=== PATIENT | male | born 1960 | race Caucasian/White ===

== ENCOUNTER 2019-08-24 13:20 | Inpatient (IN) | payer OTHER, SELFPAY ==
[2019-08-23 20:00] VITALS: BP 132/58
[~2019-08-24] VITALS: Ht 167.6 cm; Wt 81.6 kg
--- NOTE | 2019-08-24 13:39 | NUR ---
Patient transferred to bed 9 via wheelchair by triage nurse. RN evaluating patient at bedside.
[2019-08-24 13:50] VITALS: BP 82/55
--- NOTE | 2019-08-24 13:50 | NUR ---
59 Y/O MALE FROM HOME C/O SOB STARTING TODAY. TACHYPNIC AND DEEP RESPIRATION, PT USING ACCESSORY MUSCLES, WITH TRIPODDING. UNABLE TO SPEAK IN FULL SENTENCES WITHOUT DIFFICULTY. PTS SKIN COOL AND DIAPHORETIC. PT PLACED ON SIMPLE MASK. FULL FOWLERS POSITION. PLACED ON IRRIGATION DISTRICT MANAGER, PULSE OX, AND BP CUFF PLACED. POSITIONED FOR COMFORT. MEDHX: HTN
--- NOTE | 2019-08-24 13:51 | NUR ---
18G IV PLACED TO RT AC, BLOOD AND CULTURES DRAWN AT THIS TIME
[2019-08-24] MEDS ORDERED: ACET-8386 PO (13:56)
--- NOTE | 2019-08-24 13:56 | NUR ---
DR DOMINGUEZ AT BEDSIDE EXAMINING PT
--- NOTE | 2019-08-24 14:07 | NUR ---
XRAY AT BEDSIDE
--- NOTE | 2019-08-24 14:24 | NUR ---
RESPIRATORY AT BEDSIDE
[2019-08-24 14:28] LABS: BASOPHILS # (AUTO) 0.1 K/uL (0.00-0.22); BASOPHILS % (AUTO) 1.2 % (0.0-2.0); EOSINOPHILS # (AUTO) 0.1 K/uL (0-0.4); EOSINOPHILS % (AUTO) 1.7 % (0.0-4.0); HEMATOCRIT 53.9 % (36-52); HEMOGLOBIN 17.9 g/dL (12.0-18.0); LYMPHOCYTES # (AUTO) 0.3 K/uL (2.0-11.5); LYMPHOCYTES % (AUTO) 5.9 % (20.5-51.1); MEAN CORPUSCULAR HEMOGLOBIN 31 pg (27-31); MEAN CORPUSCULAR HGB CONC 33 g/dL (33-37); MEAN CORPUSCULAR VOLUME 93.3 fL (80-94); MONOCYTES # (AUTO) 0.1 K/uL (0.8-1.0); MONOCYTES % (AUTO) 1.4 % (1.7-9.3); NEUTROPHILS # (AUTO) 4.2 K/uL (1.8-7.7); NEUTROPHILS % (AUTO) 89.8 % (42.2-75.2); PLATELET COUNT (AUTO) 149 K/uL (140-450); RED BLOOD CELL COUNT(AUTO) 5.78 MIL/uL (4.20-6.10); RED CELL DISTRIBUTION WIDTH 15.2 % (11.6-13.7); WHITE BLOOD COUNT (AUTO) 4.7 K/uL (4.8-10.8)
--- NOTE | 2019-08-24 14:41 | NUR ---
PT STATES HE IS UNABLE TO GIVE URINE AT THIS TIME. DR DOMINGUEZ MADE AWARE. WILL FOLLOW UP WITH PT
--- NOTE | 2019-08-24 14:47 | NUR ---
SPOKE TO PTS JANINA. CALL FOR UPDATES
--- NOTE | 2019-08-24 14:52 | NUR ---
INFLUENZA, RSV, AND COVID-19 SWAB COLLECTED AT THIS TIME
[2019-08-24 14:56] LABS: ALBUMIN 2.9 g/dL (3.4-5.0); ANION GAP 25.9 (8-16); CARBON DIOXIDE 19.4 mmol/L (21-32); POTASSIUM 3.3 mmol/L (3.5-5.1); TOTAL BILIRUBIN 1.5 mg/dL (0.0-1.0)
[2019-08-24 14:58] LABS: PROTHROMBIN TIME 12.3 secs (10.8-13.4)
[2019-08-24 14:59] LABS: CREATININE 5.1 mg/dL (0.6-1.3)
--- NOTE | 2019-08-24 14:59 | NUR ---
CRITICAL LAB VALUE-- BUN 41, CREATININE 5.1
[2019-08-24] MEDS ORDERED: NACL 0.9% 1,000 ML IV ONE ×2 (15:05→17:45)
[2019-08-24] MEDS ORDERED: VANCOMYCIN 1,000 MG in DEXTROSE 5% 250 ML IV ONE (15:05)
[2019-08-24] MEDS ORDERED: PIPERACILLIN/TAZOBACTAM 4.5 GM in DEXTROSE 5% 100 ML IV ONE (15:05)
[2019-08-24] MEDS ORDERED: PIPERACILLIN/TAZOBACTAM 4.5 GM VIAL IV ONE (15:07)
[2019-08-24] MEDS ORDERED: VANCOMYCIN 1,000 MG VIAL ONE (15:08)
[2019-08-24 15:09] LABS: CKMB RELATIVE INDEX 0.1 (0.0-2.5); CREATINE KINASE MB 0.7 ng/mL (0-3.6)
--- NOTE | 2019-08-24 15:24 | NUR ---
SPOKE TO PTS , CALL FOR UPDATES ON PTDarci LEWIS--
[2019-08-24 15:35] LABS: RSV NEGATIVE (NEGATIVE)
[2019-08-24] MEDS ORDERED: HEPARIN PER PHARMACY MC PRN (15:40)
--- NOTE | 2019-08-24 15:43 | NUR ---
PT TO CT VIA GURNEY. RR EVEN AND UNLABORED. VSS.
[2019-08-24 15:44] LABS: C-REACTIVE PROTEIN QUANT 95.3 mg/dL (0.0-0.9)
--- NOTE | 2019-08-24 15:55 | NUR ---
PT RETURNED FROM CT VIA [facility]
[2019-08-24] MEDS ORDERED: ONDANSETRON 4 MG/2 ML VIAL IVP ONE (16:20)
[2019-08-24] MEDS ORDERED: MORPHINE SULFATE 4 MG/ML SYR IVP ONE ×2 (16:20→17:50)
--- NOTE | 2019-08-24 16:48 | NUR ---
PT PLACED ON 5L NC AT THIS TIME PER DR DOMINGUEZ. O2 SAT 97%. RR EVEN AND TACHYPNIC.
--- NOTE | 2019-08-24 17:07 | NUR ---
PT PLACED ON BEDSIDE COMMODE. ABLE TO GET ON COMMODE WITH NO DIFFICULTY. WILL CONTINUE TO MONITOR
--- NOTE | 2019-08-24 17:30 | NUR ---
ABG DRAWN ROUGHLY 1420 AND RESULTS WERE PRESENTED TO DR DOMINGUEZ IN THE ED PT WAS ON NRB
--- NOTE | 2019-08-24 17:53 | NUR ---
PT RESTING IN BED AWAKE AND ALERT. STATES INCREASE IN LOWER ABD PAIN. RR EVEN AND TACHYPNIC. VSS. WILL CONTINUE TO MONITOR. DR DOMINGUEZ MADE AWARE OF PAIN
--- NOTE | 2019-08-24 18:03 | NUR ---
RESPIRATORY AT BEDSIDE FOR RESPIRATORY INTERVENTION
--- NOTE | 2019-08-24 18:20 | NUR ---
PT WAS ON NC UPON MY ARRIVAL AND WAS PLACED ON 8L OXY SAT 98% HR 120 PT HANDS ARE COLD AND WERE WARMED AND I WAS ABLE TO OBTAIN SPO2 98% HIS HAND WAS PLACED INSIDE A WARM GOWN IN ATTEMPTS OF WARMING HANDS RN WAS INFORMED
--- NOTE | 2019-08-24 18:56 | NUR ---
GUSMAN CATHETER PLACED, NO URINE COLLECTED FROM CATHETER. PT TOLERATED WELL
[2019-08-24] MEDS ORDERED: ACETAMINOPHEN 325 MG TAB PO PRN (19:00)
[2019-08-24] MEDS ORDERED: ONDANSETRON 4 MG/2 ML VIAL IVP PRN (19:00)
[2019-08-24] MEDS ORDERED: POTASSIUM CHLORIDE 10 MEQ TABER PO PRN (19:00)
[2019-08-24] MEDS ORDERED: MAG SULF 2000 MG/WATER PREMIX 50 ML IV PRN (19:00)
[2019-08-24] MEDS ORDERED: MAGNESIUM OXIDE 400 MG TAB PO PRN (19:00)
[2019-08-24] MEDS ORDERED: SODIUM PHOSPHATE 118 ML ENEM RC PRN (19:00)
[2019-08-24] MEDS ORDERED: ZOLPIDEM 5 MG TAB PO PRN (19:00)
[2019-08-24] MEDS ORDERED: diphenhydrAMINE 50 MG/ML VIAL IVP PRN (19:00)
[2019-08-24] MEDS ORDERED: MORPHINE SULFATE 2 MG/ML SYR IVP PRN (19:00)
[2019-08-24] MEDS ORDERED: BISACODYL 10 MG SUPP RC PRN (19:00)
[2019-08-24 19:08] LABS: ANION GAP 25.1 (8-16); CARBON DIOXIDE 16.3 mmol/L (21-32)
[2019-08-24] MEDS ORDERED: VANCOMYCIN PER PHARMACY MC PRN (19:10)
--- NOTE | 2019-08-24 19:10 | NUR ---
RECIEVED REPORT FROM LOIS BONILLA. TRANSFER OF CARE AT THIS TIME.
[2019-08-24] MEDS ORDERED: SODIUM BICARBONATE 8.4% 100 MEQ in NACL 0.45% 1,000 ML IV SCH (19:15)
[2019-08-24 19:44] LABS: CREATININE 5.4 mg/dL (0.6-1.3); POTASSIUM 2.4 mmol/L (3.5-5.1)
--- NOTE | 2019-08-24 19:45 | NUR ---
RECEIVED PT FROM ER LUNG SOUNDS DIMINISHED, PT TACHYCARDIA, PT COMPLAINS OF ABDOMINAL PAIN ASSESSED AREA AND PT IS GUARDING IT, IT IS FIRM TO TOUCH TOLD PT I WOULD GET HIM SOME PAIN MEDS SOON POSSIBLE, ABLE TO FOLLOW COMMANDS, PT IS ON 10L OXYMIZER, HAS GUSMAN CATHETER IN PLACE WITH NO URINARY OUTPUT AT THIS TIME, PULSES PALPABLE UPPER AND LOWER EXTREMITIES S1 AND S2 HEART SOUNDS HEARD, BOWEL SOUNDS HYPOACTIVE, PT STATES HE HASN'T HAD A BM IN 12 HRS AND HAS NOT VOIDED IN AT LEAST 24 HRS, SAFETY PROTOCOLS IN PLACE WILL CONIINE TO MONITOR PT Addendum: 08/24/19 at 2346 by Santiago Farnsworth RN RIGHT FOREARM 18G IV, FLUSHED PATENT, SKIN IS INTACT BLANCHABLE RED MOTTLED COLOR, LEFT ARM EDEMA AND SWOLLEN DENIES PAIN TO AREA
--- NOTE | 2019-08-24 19:45 | NUR ---
Patient will be admitted to [facility]. Admited to ICU. Will go to room 3. Belongings list completed. Report to LOIS MENDIOLA.
[2019-08-24] MEDS ORDERED: SODIUM BICARBONATE 8.4% PFS 50 MEQ/50 ML SYR IVP ONE (20:02)
--- NOTE | 2019-08-24 20:30 | NUR ---
SPOKE WITH DR. AGUIRRE FOR PATIENT UPDATE AND TO REPORT CRITICAL LABS. NEW ORDERS RECEIVED, POTASSIUM 40 MEQ IV, ONCE, FOR K+ 2.4, AND ORDER URINE DRUG SCREEN, AND ABG. WILL CARRY OUT.
--- NOTE | 2019-08-24 20:34 | NUR ---
TALKED TO DR. AGUIRRE. DOCTOR AGREED TO START PATIENT ON BiPAP TO DECREASE WOB AND IMPROVE OXYGENATION.
[2019-08-24] MEDS ORDERED: KCL 20 MEQ/WATER INJ PREMIX 200 ML IV SCH (20:45)
--- NOTE | 2019-08-24 21:01 | NUR ---
PLACED PATIENT ON BiPAP TO DECREASE WOB. PATIENT TOLERATING WELL AT THIS TIME. WILL CONTINUE TO MONITOR PATIENT.
[2019-08-24] MEDS ORDERED: KCL 20 MEQ/WATER INJ PREMIX 100 ML IV ONE (21:06)
[2019-08-24 22:00] VITALS: BP 105/55
--- NOTE | 2019-08-24 22:00 | NUR ---
SPOKE WITH PT ABOUT PT HX LEARNED PT IS SMOKER, HAS HX OF HTN, NKA, HASNT RECEIVED THE FLU OF PNA VACCINE FOR THIS YEAR, HAS TENDONITIS IN THE LEFT SHOULDER. ASKED TO BE NOTIFIED OF ANY CHANGE
--- NOTE | 2019-08-24 22:59 | NUR ---
RN AT BEDSIDE. PATIENT BECAME UNRESPONSIVE. [facility] RESPONSE TEAM CALLED. STARTED BAGGING AND COMPRESSIONS. PULSE FOUND. AT BEDSIDE, DR. WONG (ER DOCTOR) SUCCESSFULLY INTUBATED PATIENT WITH ETT SIZE 7.5 @ 23cm TEETH LEVEL AND SECURED WITH ANCHOR-FAST. AUSCULTATION REVEALS BILATERAL BREATH SOUNDS. CODE BLUE CALLED FOR NO PULSE. STATED COMPRESSION AND BAGGING.
--- NOTE | 2019-08-24 23:00 | NUR ---
PT WAS IN PROCESS OF RECEIVING ANOTHER IV ON THE LEFT ARM, PT BEGAN COMPLAINING OF TROUBLE BREATHING RN AND RT AT BEDSIDE PT BECAME UNRESPONSIVE TO VERBAL AND PAINFUL STIMULI, [facility]APID RESPONSE CALLED PULSE WAS CHECKED AT 1015 NO PULSE FOUND BEGAN COMPRESSIONS ON PT, ER AT BEDSIDE 2220 WITH RAPID RESPONSE TEAM EPINEPHRINE, CALCIUM GLUCONATE, SODIUM BICARB GIVEN, PULSE FOUND AND PT INTUBATED AT 2228, 23 CM AT TEETH, PULSE LOST AT 2245 RESTARTED CPR EPINEPHRINE AND SODIUM BICARB GIVEN, NO PULSES PALPATED PEA ON MONITOR, TIME OF CALLED AT 2254.
[2019-08-24] MEDS ORDERED: PIPERACILLIN/TAZOBACTAM 3.375 GM in DEXTROSE 5% 50 ML IV SCH (23:30)
--- NOTE | 2019-08-24 23:42 | NUR ---
SPOKE WITH SENTHIL JUÁREZ WHO SAID THEY ARE NOT GOING TO PURSUE ORGAN DONATION, REFERRAL #[id number]
--- NOTE | 2019-08-25 | NUR ---
CALLED [employer]ONOR OFFICE [employer] SAID OK TO RELEASE BODY CASE NUMBER NOW PROVIDED AT MORTUARY AND NO LONGER GIVEN TO HOSPITAL ACCORDING TO BERNARD. HOUSE SUP AWARE SAYS OK TO REMOVE TUBES AND GIVE POSSESSIONS TO FAMILY.
--- NOTE | 2019-08-25 02:10 | NUR ---
FACETIME/VIDEO CALL WITH FAMILY TO ALLOW FAMILY MEMBERS TO PAY RESPECTS. ALL BELONGINGS RELEASED TO -[facility]. PT's REQUESTING BOTH UPPER AND LOWER DENTURES. WILL FOLLOWUP, ONLY UPPER DENTURES WERE RELEASED. ANSWERED ALL FAMILIES QUESTIONS. WILL BE NOTIFIED WHEN MORTUARY PICKS UP BODY.
--- NOTE | 2019-08-25 03:07 | NUR ---
CALLED [facility]ONT[facility] PER FAMILY WISHES SOMEONE HAS BEEN SENT FOR THE BODY
--- NOTE | 2019-08-25 04:40 | NUR ---
DOUBLE CHECKED PATIENTS MOUTH. NO SIGNS OF LOWER DENTURES NOTED. INVENTORY LIST SHOWS ONLY UPPER DENTURES. WILL DOUBLE CHECK PATIENTS ROOM .
--- NOTE | 2019-08-25 04:47 | NUR ---
PATIENT PICKED UP BY FANI GOME[facility], ALL PAPERWORK REVIEWED AND SIGNED. ID TAG ON TOE AND BODY BAG. PATIENTS FAMILY NOTIFIED.
--- NOTE | 2019-08-25 20:30 | NUR ---
CALLED ALEJAN[facility]O [phone], INFORMED FAMILY RESULTS OF NEGATIVE COVID TEST. REFFERED FAMILY TO MEDICAL RECORDS FOR OFFICIAL COPY OF PT CHART.
== END 2019-08-24 22:54 | disposition expired | DRG 871 ==
LOC: EEVIPCON 13:20 → MED 13:20 → MIC 18:21
PROVIDERS: ADMIT Internal Medicine Pulmonary Disease; ATTEND Internal Medicine Pulmonary Disease
DX: A41.9 Sepsis, unspecified organism (principal); J96.01 Acute respiratory failure with hypoxia; N17.0 Acute kidney failure with tubular necrosis; M72.6 Necrotizing fasciitis; L03.313 Cellulitis of chest wall; I10 Essential (primary) hypertension; M75.90 Shoulder lesion, unspecified, unspecified shoulder; M77.9 Enthesopathy, unspecified; Z20.828 Contact with and (suspected) exposure to other viral communicable diseases
CPT/HCPCS: 36415; 71045; 71250; 76536; 76641; 80048; 80053; 82550; 82553; 82728; 83605; 83615; 83880; 84484; 85025; 85379; 85384; 85610; 85730; 86140; 87040; 87186; 87420; 87804; 93005; 96365; 96366; 96367; 96375; 96376; 99291; J2270; J2405; J2543; J3370; J3480; J3490; J7060; Q0092; U0003-CS